=== PATIENT | female | born 1950 | race African-American/Black ===

== ENCOUNTER 2019-02-27 09:51 | Emergency (ER) | payer MEDICARE, MEDICAID ==
[~2019-02-27] VITALS: Ht 170.2 cm; Wt 65.8 kg
[2019-02-27 10:02] VITALS: BP 155/92
[2019-02-27] MEDS ORDERED: KETOROLAC TROMETH 60MG/2ML VIAL IM ONE (11:30)
== END 2019-02-27 11:45 | disposition home or self-care (01) ==
LOC: ER 09:51
DX: S72.001D Fracture of unspecified part of neck of right femur, subsequent encounter for closed fracture with routine healing (principal); E78.5 Hyperlipidemia, unspecified; I10 Essential (primary) hypertension; Z88.6 Allergy status to analgesic agent; Z76.0 Encounter for issue of repeat prescription; X58.XXXD Exposure to other specified factors, subsequent encounter
CPT/HCPCS: 96372; 99283; J1885